=== PATIENT | male | born 1990 | race Two or more races ===

== ENCOUNTER 2024-05-27 08:27 | Outpatient (CLI) | payer OTHER | END 2024-05-27 08:32 | disposition home or self-care (01) | LOC: SONOGRAMA 08:27 | DX: S86.092A Other specified injury of left Achilles tendon, initial encounter (principal) ==

== ENCOUNTER 2024-09-23 08:51 | Outpatient (CLI) | payer OTHER | END 2024-09-23 08:53 | disposition home or self-care (01) | LOC: RAD 08:51 | DX: S86.022A Laceration of left Achilles tendon, initial encounter (principal) ==